=== PATIENT | male | born 1965 | race American Indian/Alaskan Native ===

== ENCOUNTER 2017-10-16 16:54 | Emergency (ER) | payer SELFPAY ==
[2017-10-16] MEDS ORDERED: methylPREDNISolone Sodium Succinate 125 MG/2 ML SDV IM ONE (17:50)
--- NOTE | 2017-10-16 18:02 | EDM.PDOC ---
ED HPI GENERAL MEDICAL PROBLEM - General Chief Complaint: General Stated Complaint: ARTHRITIS PAIN Time Seen by Provider: 10/16/17 17:30 Source of Information: Reports: Patient History Limitations: Reports: No Limitations - History of Present Illness INITIAL COMMENTS - FREE TEXT/NARRATIVE: 52-year-old male with chronic rheumatoid arthritis just got released from prison today and while is waiting for his ride he thought he come over and get treatment for his rheumatoid arthritis that flared up because he didn't get his medications while in prison. He wants hydrocodone, gabapentin, steroids. He is especially having problems in his left pinky, his right hand and his right knee. Onset: Unknown/Unsure Associated Symptoms: Denies: Fever/Chills - Related Data Allergies Allergy/AdvReac Type Severity Reaction Status Date / Time codeine Allergy Itching Verified 10/16/17 17:25 ketorolac [From Toradol] Allergy Itching Verified 10/16/17 17:25 Home Meds: Home Meds Acetaminophen/HYDROcodone [[place] 325-5 MG] 1 tab PO Q6H PRN 10/16/17 [History] Gabapentin [Neurontin] 100 mg PO TID 10/16/17 [History] predniSONE [Prednisone] 20 mg PO DAILY 10/16/17 [History] Past Medical History Musculoskeletal History: Reports: RA Neurological History: Reports: Neuropathy, Peripheral Social & Family History - Tobacco Use Smoking Status *Q: Never Smoker - Caffeine Use Caffeine Use: Reports: Coffee - Recreational Drug Use Recreational Drug Use: No ED ROS GENERAL - Review of Systems Review Of Systems: See Below Constitutional: Denies: Fever, Chills Respiratory: Denies: Shortness of Breath Musculoskeletal: Reports: Hand Pain, Leg Pain Skin: Denies: Erythema ED EXAM, GENERAL - Physical Exam Exam: See Below Exam Limited By: No Limitations General Appearance: Alert, No Apparent Distress (Patient acts uncomfortable but not distressed) Head: Atraumatic Respiratory/Chest: No Respiratory Distress Extremities: Other (Exam of the hands and lower extremities reveals no significant joint inflammation, redness, effusions or asymmetry). No: Redness Skin Exam: Warm, Dry Course - Vital Signs Last Recorded V/S: Last Vital Signs Temp 98.6 F 10/16/17 17:28 Pulse 71 10/16/17 17:28 Resp 16 10/16/17 17:28 BP 154/95 H 10/16/17 17:28 Pulse Ox 99 10/16/17 17:28 - Orders/Labs/Meds Meds: Medications Discontinued Medications Generic Name Dose Route Start Last Admin Trade Name Neil PRN Reason Stop Dose Admin Methylprednisolone Sodium Succinate 125 mg 10/16/17 17:50 10/16/17 17:58 Solu-Medrol IM 10/16/17 17:51 125 mg ONETIME ONE Administration - Re-Assessments/Exams Free Text/Narrative Re-Assessment/Exam: 10/16/17 18:04 125 mg of IM Solu-Medrol was given, and an instymed for 50 mg of prednisone daily for the next 3-6 days. He should recheck with his primary provider when he gets back to [place] as soon as possible. I really don't see any physical evidence of widespread inflammatory arthritis. Departure - Departure Time of Disposition: 18:30 Disposition: Home, Self-Care 01 Condition: Good Clinical Impression: Arthritis - Discharge Information Instructions: Arthritis Referrals: PCP,None [Primary Care Provider] - Forms: ED Department Discharge Care Plan Goals: Take 5 pills of prednisone tomorrow morning with food, and continue daily for the next 3-6 days. Recheck with your primary provider as soon as you get home.
== END 2017-10-16 18:30 | disposition home or self-care (01) ==
LOC: JP.ED 16:54
DX: M06.9 Rheumatoid arthritis, unspecified (principal); Z88.5 Allergy status to narcotic agent; Z79.899 Other long term (current) drug therapy
CPT/HCPCS: 96372; 99283; J2930

== ENCOUNTER 2019-03-11 13:17 | Emergency (ER) | payer MEDICAID, OTHER ==
[2019-03-11] MEDS ORDERED: Aspirin 81 MG Tab.Chew PO ONE (13:19)
[2019-03-11] MEDS ORDERED: Ondansetron 4 MG/2 ML SDV IVPUSH ONE ×2 (13:25→14:22)
[2019-03-11] MEDS ORDERED: LORazepam 2 MG/ML SDV IVPUSH ONE ×2 (13:26→14:13)
[2019-03-11] MEDS ORDERED: Ondansetron 4 MG/2 ML SDV ONE (13:27)
[2019-03-11] MEDS ORDERED: Nitroglycerin 0.4 MG Tab.SL SL PRN (13:31)
--- NOTE | 2019-03-11 13:32 | EDM.PDOC ---
ED HPI GENERAL MEDICAL PROBLEM - General Chief Complaint: Chest Pain Stated Complaint: MEDICAL [facility] Time Seen by Provider: 03/11/19 13:22 Source of Information: Reports: Patient History Limitations: Reports: No Limitations - History of Present Illness INITIAL COMMENTS - FREE TEXT/NARRATIVE: pt is clearly hyperventilating and having pain in the left upper chest and left arm. He states he ate lunch and he then felt nauseated and he did vomit. He then developed the pain in the left upper chest. He has pain going down the left arm. Pt does seem very anxious. He has alot of tingling going down both arms. Onset: Today, Sudden, Other (pt ate lunch and he became very nauseated. He vomited and then he developed the chest pain. He is not having severe abdomanal pain. ) Duration: Hour(s): Location: Reports: Chest, Abdomen, Other (pt is clearly hyperventilating. ) Associated Symptoms: Reports: Chest Pain, Diaphoresis, Nausea/Vomiting, Shortness of Breath, Other (pt is hyperventilating. ) Chest Pain Score (Numeric/FACES): 8 - Related Data Allergies Allergy/AdvReac Type Severity Reaction Status Date / Time codeine Allergy Itching Verified 03/11/19 13:21 ketorolac [From Toradol] Allergy Itching Verified 03/11/19 13:21 Home Meds: Home Meds Acetaminophen/HYDROcodone [[place] 325-5 MG] 1 tab PO Q6H PRN 10/16/17 [History] Celecoxib 200 mg PO BID 03/11/19 [History] Cetirizine HCl [Zyrtec] 10 mg PO DAILY 03/11/19 [History] DULoxetine [Cymbalta] 60 mg PO DAILY 03/11/19 [History] Fluticasone Furoate [Arnuity Ellipta] 50 mcg IH DAILY 03/11/19 [History] amLODIPine [Norvasc] 5 mg PO DAILY 03/11/19 [History] traZODone 100 mg PO DAILY 03/11/19 [History] Past Medical History Musculoskeletal History: Reports: RA Neurological History: Reports: Neuropathy, Peripheral Social & Family History - Caffeine Use Caffeine Use: Reports: Coffee ED ROS GENERAL - Review of Systems Review Of Systems: See Below Constitutional: Reports: No Symptoms HEENT: Reports: No Symptoms Respiratory: Reports: Shortness of Breath Cardiovascular: Reports: Chest Pain, Other (left upper chest. ) Endocrine: Reports: No Symptoms GI/Abdominal: Reports: Nausea, Vomiting : Reports: No Symptoms Musculoskeletal: Reports: No Symptoms Skin: Reports: No Symptoms ED EXAM, GENERAL - Physical Exam Exam: See Below Free Text/Narrative:: pt arrived with left upper chest pain. He is tingly and he is hyperventilating. He is vomiting. He states he started vomiting shortly after he ate lunch. Exam Limited By: No Limitations General Appearance: Alert, Anxious, Other (pt is hyperventilating markedly. ) Ears: Normal TMs Nose: Normal Inspection Throat/Mouth: Normal Inspection Head: Atraumatic Neck: Normal Inspection Respiratory/Chest: Other (pt has a resp rate of 22. He is clearly hyperventilating. His chest does sound clear. ) Cardiovascular: Regular Rate, Rhythm, Tachycardia GI/Abdominal: Soft, Other (pt is vomiting but he has no guarding in his abdoman. ) (Male) Exam: Deferred Rectal (Males) Exam: Other (pt had a bm this am. ) Back Exam: Normal Inspection Extremities: Normal Inspection Neurological: Alert, Oriented, Normal Cognition Psychiatric: Anxious Course - Vital Signs Last Recorded V/S: Last Vital Signs Temp 36.8 C 03/11/19 13:24 Pulse 96 03/11/19 15:45 Resp 15 03/11/19 15:45 BP 134/105 H 03/11/19 15:45 Pulse Ox 99 03/11/19 15:45 - Orders/Labs/Meds Labs: Laboratory Tests 03/11/19 03/11/19 03/11/19 Range/Units 13:24 13:24 13:24 WBC 8.6 (4.5-11.0) K/uL RBC 5.43 (4.30-5.90) M/uL Hgb 14.8 (12.0-15.0) g/dL Hct 43.8 (40.0-54.0) % MCV 81 (80-98) fL MCH 27 (27-31) pg MCHC 34 (32-36) % Plt Count 332 (150-400) K/uL Neut % (Auto) 73 H (36-66) % Lymph % (Auto) 20 L (24-44) % [place] % (Auto) 6 (2-6) % Eos % (Auto) 1 L (2-4) % Baso % (Auto) 0 (0-1) % Sodium 139 L (140-148) mmol/L Potassium 3.5 L (3.6-5.2) mmol/L Chloride 102 (100-108) mmol/L Carbon Dioxide 23 (21-32) mmol/L Anion Gap 17.5 H (5.0-14.0) mmol/L BUN 13 (7-18) mg/dL Creatinine 0.9 (0.8-1.3) mg/dL Est Cr Clr Drug Dosing TNP Estimated GFR (MDRD) > 60 (>60) Glucose 134 H (74-106) mg/dL Calcium 9.2 (8.5-10.1) mg/dL Total Bilirubin 0.4 (0.2-1.0) mg/dL AST 15 (15-37) U/L ALT 25 (12-78) U/L Alkaline Phosphatase 113 (46-116) U/L Troponin I < 0.017 (0.000-0.056) ng/mL C-Reactive Protein (0.0-0.3) mg/dL Total Protein 7.6 (6.4-8.2) g/dL Albumin 4.0 (3.4-5.0) g/dL Globulin 3.6 H (2.3-3.5) g/dL Albumin/Globulin Ratio 1.1 L (1.2-2.2) Lipase (73-393) U/L Urine Color (YELLOW) Urine Appearance (CLEAR) Urine pH (5.0-8.0) Ur Specific [place] (1.008-1.030) Urine Protein (NEGATIVE) mg/dL Urine Glucose (UA) (NEGATIVE) mg/dL Urine Ketones (NEGATIVE) mg/dL Urine Occult Blood (NEGATIVE) Urine Nitrite (NEGATIVE) Urine Bilirubin (NEGATIVE) Urine Urobilinogen (0.2-1.0) EU/dL Ur Leukocyte Esterase (NEGATIVE) Urine RBC (0-5) Urine WBC (0-5) Ur Epithelial Cells Amorphous Sediment Urine Bacteria Urine Mucus 03/11/19 03/11/19 03/11/19 Range/Units 13:48 14:58 15:01 WBC (4.5-11.0) K/uL RBC (4.30-5.90) M/uL Hgb (12.0-15.0) g/dL Hct (40.0-54.0) % MCV (80-98) fL MCH (27-31) pg MCHC (32-36) % Plt Count (150-400) K/uL Neut % (Auto) (36-66) % Lymph % (Auto) (24-44) % [place] % (Auto) (2-6) % Eos % (Auto) (2-4) % Baso % (Auto) (0-1) % Sodium (140-148) mmol/L Potassium (3.6-5.2) mmol/L Chloride (100-108) mmol/L Carbon Dioxide (21-32) mmol/L Anion Gap (5.0-14.0) mmol/L BUN (7-18) mg/dL Creatinine (0.8-1.3) mg/dL Est Cr Clr Drug Dosing Estimated GFR (MDRD) (>60) Glucose (74-106) mg/dL Calcium (8.5-10.1) mg/dL Total Bilirubin (0.2-1.0) mg/dL AST (15-37) U/L ALT (12-78) U/L Alkaline Phosphatase (46-116) U/L Troponin I (0.000-0.056) ng/mL C-Reactive Protein 0.21 (0.0-0.3) mg/dL Total Protein (6.4-8.2) g/dL Albumin (3.4-5.0) g/dL Globulin (2.3-3.5) g/dL Albumin/Globulin Ratio (1.2-2.2) Lipase 188 (73-393) U/L Urine Color Yellow (YELLOW) Urine Appearance Slightly cloudy A (CLEAR) Urine pH 8.5 H (5.0-8.0) Ur Specific [place] 1.015 (1.008-1.030) Urine Protein Trace H (NEGATIVE) mg/dL Urine Glucose (UA) Negative (NEGATIVE) mg/dL Urine Ketones Trace H (NEGATIVE) mg/dL Urine Occult Blood Negative (NEGATIVE) Urine Nitrite Negative (NEGATIVE) Urine Bilirubin Negative (NEGATIVE) Urine Urobilinogen 0.2 (0.2-1.0) EU/dL Ur Leukocyte Esterase Negative (NEGATIVE) Urine RBC 0-5 (0-5) Urine WBC 0-5 (0-5) Ur Epithelial Cells Rare Amorphous Sediment Moderate Urine Bacteria Rare Urine Mucus Not seen 03/11/19 Range/Units 15:20 WBC (4.5-11.0) K/uL RBC (4.30-5.90) M/uL Hgb (12.0-15.0) g/dL Hct (40.0-54.0) % MCV (80-98) fL MCH (27-31) pg MCHC (32-36) % Plt Count (150-400) K/uL Neut % (Auto) (36-66) % Lymph % (Auto) (24-44) % [place] % (Auto) (2-6) % Eos % (Auto) (2-4) % Baso % (Auto) (0-1) % Sodium (140-148) mmol/L Potassium (3.6-5.2) mmol/L Chloride (100-108) mmol/L Carbon Dioxide (21-32) mmol/L Anion Gap (5.0-14.0) mmol/L BUN (7-18) mg/dL Creatinine (0.8-1.3) mg/dL Est Cr Clr Drug Dosing Estimated GFR (MDRD) (>60) Glucose (74-106) mg/dL Calcium (8.5-10.1) mg/dL Total Bilirubin (0.2-1.0) mg/dL AST (15-37) U/L ALT (12-78) U/L Alkaline Phosphatase (46-116) U/L Troponin I < 0.017 (0.000-0.056) ng/mL C-Reactive Protein (0.0-0.3) mg/dL Total Protein (6.4-8.2) g/dL Albumin (3.4-5.0) g/dL Globulin (2.3-3.5) g/dL Albumin/Globulin Ratio (1.2-2.2) Lipase (73-393) U/L Urine Color (YELLOW) Urine Appearance (CLEAR) Urine pH (5.0-8.0) Ur Specific [place] (1.008-1.030) Urine Protein (NEGATIVE) mg/dL Urine Glucose (UA) (NEGATIVE) mg/dL Urine Ketones (NEGATIVE) mg/dL Urine Occult Blood (NEGATIVE) Urine Nitrite (NEGATIVE) Urine Bilirubin (NEGATIVE) Urine Urobilinogen (0.2-1.0) EU/dL Ur Leukocyte Esterase (NEGATIVE) Urine RBC (0-5) Urine WBC (0-5) Ur Epithelial Cells Amorphous Sediment Urine Bacteria Urine Mucus Meds: Medications Discontinued Medications Generic Name Dose Route Start Last Admin Trade Name Freq PRN Reason Stop Dose Admin Aspirin 324 mg 03/11/19 13:19 03/11/19 13:29 Aspirin PO 03/11/19 13:20 Not Given ONETIME ONE Hydromorphone HCl 0.5 mg 03/11/19 14:57 03/11/19 15:04 Dilaudid IVPUSH 03/11/19 14:58 0.5 mg ONETIME ONE Administration Sodium Chloride 1,000 mls @ 999 mls/hr 03/11/19 14:45 03/11/19 14:38 Normal Saline IV 999 mls/hr ASDIRECTED KHOI Administration Lorazepam 1 mg 03/11/19 13:26 03/11/19 13:31 Ativan IVPUSH 03/11/19 13:27 1 mg ONETIME ONE Administration Lorazepam 0.5 mg 03/11/19 14:13 03/11/19 14:20 Ativan IVPUSH 03/11/19 14:14 0.5 mg ONETIME ONE Administration Nitroglycerin 0.4 mg 03/11/19 13:31 03/11/19 13:37 Nitrostat SL 0.4 mg Q5M PRN Administration Chest Pain Ondansetron HCl 4 mg 03/11/19 13:25 03/11/19 13:31 Zofran IVPUSH 03/11/19 13:26 4 mg ONETIME ONE Administration Ondansetron HCl Confirm 03/11/19 13:27 03/11/19 13:33 Zofran Administered 03/11/19 13:28 Not Given Dose 4 mg .ROUTE .STK-MED ONE Ondansetron HCl 4 mg 03/11/19 14:22 03/11/19 14:38 Zofran IVPUSH 03/11/19 14:23 4 mg ONETIME ONE Administration Pantoprazole Sodium 40 mg 03/11/19 13:58 03/11/19 14:22 Protonix Iv IVPUSH 03/11/19 13:59 40 mg ONETIME ONE Administration Prochlorperazine Edisylate 10 mg 03/11/19 14:58 03/11/19 15:05 Compazine IVPUSH 03/11/19 14:59 10 mg ONETIME ONE Administration - Re-Assessments/Exams Free Text/Narrative Re-Assessment/Exam: 03/11/19 15:45 chest xray showed no acute infiltrate. His trop is neg and a second was ordered. His ekg looked good. He had zoforan 8 mg and then was given compazine 10 mg iv because of ongoing vomiting. He had a Us to look at the liver and GB area. This did not show acute findings. His urine was clear with no blood in it. He was given nitro with no relief. He was given ativan 1.5 mg. He was given dilaudid .5. He finally did settle down and is breathing normal and he is more comfortable. 03/11/19 15:48 pt had a second trop that was normal. The compazine appeared to work better than the zoforan. He was given protonix 40 mg iv. Departure - Departure Time of Disposition: 15:49 Disposition: Home, Self-Care 01 Condition: Fair Clinical Impression: Viral illness, Gastric irritation, Hyperventilation Instructions: Hyperventilation, Viral Gastroenteritis, Adult, [id number] Referrals: PCP,None [Primary Care Provider] - Forms: ED Department Discharge Care Plan Goals: compazine 10 mg q8h prn for nausea, prolosec 20 mg bid for the next 5 days. Sepsis Event Note - Focused Exam Date Exam was Performed: 03/13/19 Time Exam was Performed: 07:50
[2019-03-11] MEDS ORDERED: Pantoprazole 40 MG Vial IVPUSH ONE (13:58)
[2019-03-11] MEDS ORDERED: Sodium Chloride 0.9% 1,000 ML IV SCH (14:45)
[2019-03-11] MEDS ORDERED: HYDROmorphone 0.5 MG/0.5 ML Syringe IVPUSH ONE (14:57)
[2019-03-11] MEDS ORDERED: Prochlorperazine 10 MG/2 ML SDV IVPUSH ONE (14:58)
--- NOTE | 2019-03-11 15:10 | CR ---
CHEST: Portable 03/11/2019 at 2:41 PM CLINICAL HISTORY:Hyperventilation COMPARISON:None FINDINGS: The heart size, pulmonary vascular and hilar structures are normal. No infiltrate effusion or pneumothorax is seen. IMPRESSION: No acute cardiopulmonary process.
--- NOTE | 2019-03-11 15:41 | US ---
Abdomen Ltd CLINICAL HISTORY: Abdominal pain FINDINGS: Liver has a normal echotexture. There is no mass or biliary dilatation. Common bile duct measures 3 mm. Gallbladder is not visualized pancreas is obscured. Right kidney has a normal contour measuring 9.5 cm in length IVC is patent. IMPRESSION: Nonvisualization of the gallbladder Abdominal ultrasound is otherwise normal
== END 2019-03-11 16:17 | disposition home or self-care (01) ==
LOC: JP.ED 13:17
DX: K31.89 Other diseases of stomach and duodenum (principal); R06.4 Hyperventilation; B34.9 Viral infection, unspecified; Z88.5 Allergy status to narcotic agent; Z88.6 Allergy status to analgesic agent; Z79.899 Other long term (current) drug therapy
CPT/HCPCS: 36415; 71045; 76705; 80053; 81001; 83690; 84484; 85025; 86140; 93005; 96361; 96374; 96375; 96376; 99285; A9270; C9113; J0780; J1170; J2060; J2405; J7030